=== PATIENT | male | born 1990 | race Caucasian/White ===

== ENCOUNTER 2022-02-14 17:01 | Emergency (ER) | payer MEDICAID ==
[~2022-02-14] VITALS: Ht 182.9 cm; Wt 127.0 kg
[2022-02-14 17:02] VITALS: BP 147/82
--- NOTE | 2022-02-14 17:31 | NUR ---
31 y/o male biba from home, pt had mechanical fall, denies loc, syncope, head/neck trauma. states he rolled his left ankle, pt has minimal swelling with abrasion. 10/10 pain initially, fire on scene gave 50mcg ivp fentanyl, now c/o 4/10 pain. a&ox4, does not ambulate at this time. pmh: denies nka med: pt given 50mcg of fentanyl by fire
--- NOTE | 2022-02-14 18:34 | NUR ---
SUGAR TONG x SHORT LEG POSTERIOR APPLIED TO L LOWER LEG. + CMS
--- NOTE | 2022-02-14 18:46 | NUR ---
PT PROVIDED WITH CRUTCHES AND RETURNED SAFE DEMONSTRATION
[2022-02-14] MEDS ORDERED: ACET-8905 PO (19:09)
[2022-02-14] MEDS ORDERED: IBUP-2213 PO (19:09)
--- NOTE | 2022-02-14 19:42 | NUR ---
Patient discharged with v/s stable. Written and verbal after care instructions given and explained. Patient alert, oriented and verbalized understanding of instructions. Wheel Chair Assisted with CRUTCHES to home. All questions addressed prior to discharge. ID band removed. Patient advised to follow up with PMD. Rx of HYDROCODONE AND IBUPROFEN given.Opportunity to ask questions provided and answered.
== END 2022-02-14 19:42 | disposition home or self-care (01) ==
LOC: MED 17:01
DX: S82.402A Unspecified fracture of shaft of left fibula, initial encounter for closed fracture (principal); W18.30XA Fall on same level, unspecified, initial encounter; Y93.89 Activity, other specified; Y92.89 Other specified places as the place of occurrence of the external cause; Y99.8 Other external cause status
CPT/HCPCS: 29515; 73610; 99283